=== PATIENT | female | born 1965 | race Caucasian/White ===

== ENCOUNTER 2017-08-18 21:28 | Emergency (ER) | payer OTHER ==
[~2017-08-18] VITALS: Ht 160 cm; Wt 69.0 kg
[~2017-08-18 21:28] MED LIST: AMBIEN; LORTABELXR PO; SYNTHROID75 MCG; THERA-M CAPLET1 EACH; ZPAK PO
[2017-08-18] MEDS ORDERED: LIPITOR 20 MG T20 M1 PO (21:33)
[2017-08-18] MEDS ORDERED: FLEXERIL PO (21:33)
[2017-08-18 21:52] LABS: ABSOLUTE BASOPHILS 0.1 thou/uL (0.0-0.2); ABSOLUTE EOSINOPHILS 0.2 thou/uL (0.0-0.7); ABSOLUTE LYMPHOCYTES 3.3 thou/uL (0.8-5.3); ABSOLUTE NEUTROPHILS 5.4 thou/uL (1.6-8.1); EOSINOPHILS 1.8 %; HEMOGLOBIN 14.9 gm/dL (12.0-15.0); LYMPHOCYTES 33.1 %; MCH 33.1 pg (26.0-34.0); MCHC 35.3 g/dL (28.0-37.0); MCV 93.8 fL (80.0-100.0); MPV 8.2 fl. (7.2-11.1); NUCLEATED RBCS 0 /100WBC; PLATELET COUNT* 244 thou/uL (150-400); POLYS 54.1 %; RBC 4.48 mil/uL (4.20-5.00); RDW-CV 12.3 % (10.5-14.5); WBC 9.9 thou/uL (4.0-11.0)
[2017-08-18 22:00] LABS: ANION GAP 9 mmol/L (7-16); BUN 15 mg/dL (7-18); CALCIUM 9.4 mg/dL (8.5-10.1); CHLORIDE 102 mmol/L (98-107); CO2 30 mmol/L (21-32); GLUCOSE 115 mg/dL (70-99); POTASSIUM 3.7 mmol/L (3.5-5.1); SODIUM 141 mmol/L (136-145)
[2017-08-18 22:17] LABS: ALBUMIN 4.2 g/dL (3.4-5.0); ALKALINE PHOSPHATASE 79 U/L (46-116); CK-MB MASS < 0.5 ng/mL (<0.5-3.6); LIPASE 286 U/L (73-393); MAGNESIUM 2.4 mg/dL (1.8-2.4); NT-PRO BRAIN NAT PEPTIDE 10 pg/mL (<300); SGOT 19 U/L (15-37); SGPT 38 U/L (30-65); TOTAL BILIRUBIN 0.7 mg/dL (<0.1-1.0); TOTAL PROTEIN 7.5 g/dL (6.4-8.2); TROPONIN-I LEVEL <0.06 ng/mL (<0.06)
[2017-08-18 22:22] LABS: APTT 24.3 Seconds (25.0-31.3)
[2017-08-18 22:50] VITALS: BP 124/73
--- NOTE | 2017-08-19 11:48 | EKG ---
[place] [address] ELECTROCARDIOGRAM REPORT Name: CRISTINE CEJA Room: [facility]#: [id number] Admission: 08/18/17 Attend Phys: Discharge: 08/18/17 Date of : 65 Report #: [id number] THIS REPORT FOR: //name// [facility] ED Test Date: 2017-08-18 Test Time: 21:32:58 Pat Name: CRISTINE CEJA Department: Room: Gender: F Nursing Support Worker: ED : 1965 Requested By: Aaron Beard Order Number: [id number] MD: Dov Ruvalcaba Measurements Intervals [place] Rate: 90 P: 43 [place]: 199 QRS: -52 QRSD: 97 T: 34 QT: 362 QTc: 443 Interpretive Statements Sinus rhythm Probable left atrial enlargement Left anterior fascicular block Possible anteroseptal infarct, old Compared to ECG 09/11/2010 22:22:15 Possible Myocardial infarct finding now present Electronically Signed On 08-19-2017 11:48:30 [employer] DEPARTMENT MANAGER by Dov Ruvalcaba [email or web address] <ELECTRONICALLY SIGNED> By: Dov Ruvalcaba MD, FACC 08/19/17 1148 [id number] Dov Ruvalcaba MD, MERGED WITH [facility] /EPI
[2017-09-19] MEDS ORDERED: IBUPROFEN 600600 M1 PO (09:06)
[2017-09-19] MEDS ORDERED: BIOTIN5000 MCG PO (09:07)
[2017-09-19] MEDS ORDERED: CALCIUM MAGNES1 EACH PO (09:09)
[2017-09-19] MEDS ORDERED: MOBIC15 MG PO (09:11)
[2017-09-19] MEDS ORDERED: COENZYME Q-1030 MG PO (09:20)
[2017-09-19] MEDS ORDERED: FISH OIL 1,001000 M2 PO (09:21)
[2017-09-19] MEDS ORDERED: THERA M PLUS T1 EAC2 PO (09:22)
[2017-09-19] MEDS ORDERED: RED YEAST RICE600 M1 PO (09:22)
[2017-10-24] MEDS ORDERED: AMITRIPTYLINE H10 M3 PO ×2 (08:21→08:22)
== END 2017-08-18 22:51 | disposition home or self-care (01) ==
LOC: M.ERS 21:28
PROVIDERS: Family Medicine
DX: M25.511 Pain in right shoulder (principal); Z88.5 Allergy status to narcotic agent

== ENCOUNTER → 2017-08-22 | Outpatient (CLI) | payer OTHER ==
[~2017-08-22] MED LIST changes: +AMITRIPTYLINE H10 M3 PO; +BIOTIN5000 MCG PO; +CALCIUM MAGNES1 EACH PO; +COENZYME Q-1030 MG PO; +FISH OIL 1,001000 M2 PO; +FLEXERIL PO; +IBUPROFEN 600600 M1 PO; +LIPITOR 20 MG T20 M1 PO; +MOBIC15 MG PO; +RED YEAST RICE600 M1 PO; +THERA M PLUS T1 EAC2 PO
== END ==
LOC: M.CT 07:46
DX: Z13.6 Encounter for screening for cardiovascular disorders (principal)

== ENCOUNTER → 2017-09-19 | Outpatient (CLI) | payer OTHER ==
--- NOTE | 2017-10-04 08:30 | PAINCON ---
[address] [address] PAIN MANAGEMENT CONSULTATION Name: CRISTINE CEJA Room: [facility] DARREL ThomasaRn#: [id number] Admission: 09/19/17 Attend Phys: Juvenal Martínez MD Discharge: Date of : 65 Report #: [id number] THIS REPORT FOR: //name// CC: Shahnaz Martínez DATE OF SERVICE: 09/19/2017 CHIEF COMPLAINT: Pain in the neck with pain down into the arm and hand. HISTORY OF PRESENT ILLNESS: The patient is a 52-year-old female who has been referred to the pain clinic for pain and discomfort, which is radiating down into her arms. She denies any trauma. She has not had surgery. Notes that her pain has been more problematic since about 11/2016. She has had a slow increase in pain and discomfort. She was given a Medrol Dosepak. She noted some improvement in her pain and discomfort. Does have some history of chronic neck pain with arthritis. Pain has been most problematic on the right arm. She has tried Flexeril and some nonsteroidal anti-inflammatory medications. She has noticed that sitting can exacerbate her pain. The Medrol Dosepak with prednisone decreased her pain and discomfort. She describes it as continuous, steady, constant, shooting, aching, sharp and tender. Rates it as a 6/10. It is having some impact on her life that she is having more difficulty sleeping and more difficulty with activities of daily living. ALLERGIES: HYDROCODONE CAUSE SOME CHEST TIGHTNESS. MEDICATIONS: Lipitor 20 mg 1 daily, biotin 500 mcg, calcium, magnesium, and vitamin D tablet, Flexeril 10 mg p.r.n. for spasms t.i.d., fish oil with food, ibuprofen 600 mg q. 4 hours, multivitamins, red yeast rice 600 mg, total of 1200 daily, Coenzyme Q 30 mg capsule. PAST MEDICAL HISTORY: 1. Right neck pain. 2. Hyperlipidemia. 3. Joint disease/arthritis. 4. Fibrocystic breast. 5. Hypothyroidism. 5. Menopause. PAST SURGICAL HISTORY: Breast lumpectomy in 05/2016. in 06/1993. FAMILY HISTORY: Hypertension in mother and father. Diabetes in father. Arthritis, migraines, and uterine cancer in maternal grandmother. Diabetes in grandfather. Mother is alive, has kidney problems. Father alive. Daughter alive. [place] [address] PAIN MANAGEMENT CONSULTATION Name: CRISTINE CEJA Room: [facility]#: [id number] Admission: 09/19/17 Attend Phys: Juvenal Martínez MD Discharge: Date of : 65 Report #: [id number] SOCIAL HISTORY: She is a food service cashier. She is working at this juncture. Denies use of tobacco. Denies use of alcoholic beverages. REVIEW OF SYSTEMS: Questionnaire in the chart indicates generally good health, wears glasses, joint pain, stiffness, back pain, breast lump, lightheadedness, and dizziness. LABORATORY DATA: 1. MRI of the cervical spine dated 08/15/2017 reveals C2/C3 normal disk height without a posterior disk bulge, protrusion or extrusion identified. No central canal stenosis, neural foraminal stenosis or nerve root compression is identified. 2. C3/C4 mild disk height loss without significant posterior disk bulge, protrusion or extrusion identified. Moderate left-sided facet arthropathy with the findings producing moderate left-sided neural foraminal stenosis with possible partial compression of the exiting left-sided nerve root as seen on axial T2 image. 3. No significant central stenosis or right-sided neural foraminal stenosis identified. 4. C5/C4 mild disk height loss with a small posterior disk osteophyte complex, which abuts the thecal sac anteriorly. There is more focal right foraminal component to the disk osteophyte complex as seen on T2 image. The findings produce moderate upper right-sided neural foraminal stenosis with the lower portion of the right neural foramen appearing widely patent. No nerve compression is identified. No significant central canal stenosis or left-sided neural foraminal stenosis identified. 5. C5/C6 mild disk height loss with a small posterior disk osteophyte complex, which produces minimal flattening of the thecal sac anteriorly. There is more focal left foraminal component to the disk osteophyte complex as seen on sagittal T2 images. 6. C6/C5 the findings appear to produce [id number] left-sided neural foraminal stenosis with possible partial compression of the exiting nerve root. Moderate right-sided neural foraminal stenosis is also present secondary to a small right foraminal disk osteophyte complex and mild right-sided facet arthropathy. The disk heights appear well-maintained from C6/C7 through T3/T4 without a significant posterior disk bulge, protrusion or extrusion identified at these levels. PAIN CLINIC ASSESSMENT: 1. No significant osteoarthritis noted, possible arthritis of the neck 2. Height 5 feet 4 inches, weight 154 pounds, BMI is 27. 3. VITAL SIGNS: Blood pressure 116/70, heart rate 87, respiratory rate 16, room air saturation 97%, temperature 98.6. 4. Pain intensity 6/10. 5. Fall risk. The patient has not fallen in the last 3 months. She is not a [address] [address] PAIN MANAGEMENT CONSULTATION Name: CRISTINE CEJA Jaden Room: [facility]#: [id number] Admission: 09/19/17 Attend Phys: Juvenal Martínez MD Discharge: Date of : 65 Report #: [id number] fall risk. 6. Blood thinners. The patient is not on any blood thinner. 7. History of hypertension. The patient is not being treated for hypertension. 8. Opioid therapy greater than 6 weeks. The patient is not on opioid therapy. 9. Risk tool assessment. 10. Functional assessment tool. 11. Recreational drug use. Denies use of recreational drugs. 12. Tobacco use. The patient denies use of tobacco, denies use of alcoholic beverages. PHYSICAL EXAMINATION: GENERAL: The patient is a well-developed, well-nourished white female, appears her stated age. She is alert and oriented x 3. Affect is appropriate. HEENT: Head is atraumatic. Extraocular eye muscles intact. Hearing is within normal limits. No nasal congestion. Buccal membranes moist. NECK: Without adenopathy or bruits. The patient has some soreness in the left and right occipital area, some soreness in the left and right trapezius to palpation. HEART: Regular rate with normal S1, S2. LUNGS: Clear to auscultation. ABDOMEN: Nontender. MUSCULOSKELETAL Alignment is normal without significant scoliosis, kyphosis or lordosis. The patient's gait appears normal. Lumbar extension to about 10 degrees and flexion to approximately 80 degrees were not problematic. Left and right lateral rotation, left and right lateral bending were not problematic. Muscle strength is judged to be 5/5 for the major muscle groups of the upper extremities. Biceps tendon reflexes are +2 left and right, triceps +1 left and right, brachial radialis +1 left and right. The patient does complain of some pain and discomfort radiating down the side of her hand into the right arm with numbness and tingling, major muscle groups in the lower extremities are judged to be +5/5, sensation of the lower extremities is within normal limits without deficits. Patellar reflex +2, ankle reflex +2. The patient is able to walk on her toes as well as her heels. IMPRESSION: 1. Right-sided arm pain with radiation of numbness and tingling down into the right arm. This improved after a Medrol Dosepak. 2. Hyperlipidemia. 3. Chest pressure. 4. Fibrocystic breast. 5. Hypothyroidism. 6. Menopause. RECOMMENDATIONS: We discussed treatment options with the patient. The patient is having pain and discomfort involving her right neck with stiffness, numbness radiating down into the right arm. She took a Medrol Dosepak[place] [address] PAIN MANAGEMENT CONSULTATION Name: MARCIALCRISTINE Jaden Room: [facility] LAURIE Farrar#: [id number] Admission: 09/19/17 Attend Phys: Juvenal Martínez MD Discharge: Date of : 65 Report #: [id number] the pain improved after that. We will have her try Mobic 15 mg 1 p.o. every day and note its efficacy. The patient will also return to the pain clinic at which time she will undergo a cervical epidural steroid injection to help with the pain and discomfort, which is radiating down into her right arm with numbness, weakness and sensory changes. She will follow up in the near future after her insurance company has precerted her. We would like to thank you for letting us participate in her care. We hope she continues to improve. <ELECTRONICALLY SIGNED> By: Juvenal Martínez MD 10/04/17 0830 1334 [id number]. Gerald Martínez MD /[facility]
== END ==
LOC: M.PC 08-29 08:20
DX: M54.2 Cervicalgia (principal); M79.602 Pain in left arm; M79.601 Pain in right arm; E78.5 Hyperlipidemia, unspecified; E03.9 Hypothyroidism, unspecified; R20.0 Anesthesia of skin; R20.2 Paresthesia of skin; N60.19 Diffuse cystic mastopathy of unspecified breast; R07.89 Other chest pain; Z78.0 Asymptomatic menopausal state

== ENCOUNTER → 2017-10-03 | Outpatient (CLI) | payer OTHER ==
--- NOTE | 2017-10-11 14:39 | PAINCON ---
[address] [address] PAIN MANAGEMENT CONSULTATION Name: CRISTINE CEJA Room: [facility] DARREL Charan#: [id number] Admission: 10/03/17 Attend Phys: Juvenal Martínez MD Discharge: Date of : 65 Report #: [id number] THIS REPORT FOR: //name// CC: Shahnaz Martínez DATE OF SERVICE: 10/03/2017 FOLLOWUP COMPLAINT: Here for a cervical injection. FOLLOWUP HISTORY: The patient is a 52-year-old female who has been seen in the pain clinic. As you recall, she has pain and discomfort involving the neck area. She was seen in the pain clinic at the last visit. She was found to be suffering from cervical radiculopathy. She has returned today. Her insurance company has precerted her for a cervical epidural steroid injection secondary to pain and discomfort in her right side with pain radiating with numbness and tingling down into her right arm. She feels that her pain continues to be problematic, rates it as a 7-8/10 today. She continues to experience some stiffness, numbness in the right arm and complains of worsening pain in the right shoulder. She continues to take her medications of meloxicam, Flexeril and ibuprofen. She would like to proceed with an epidural steroid injection today. ALLERGIES: HYDROCODONE CAUSES SOME CHEST TIGHTNESS. REVIEW OF CURRENT MEDICATIONS: Lipitor 20 mg 1 tablet daily, biotin 500 mcg, calcium, magnesium, vitamin D tablets, Flexeril 10 mg p.o. p.r.n. t.i.d. for spasms, fish oil, ibuprofen taken with food q. 4 hours p.r.n., multivitamins, red yeast rice 600 mg, 1200 mg daily, coenzyme Q capsules 30 mg. PAIN CLINIC ASSESSMENT: 1. The patient is not being treated for osteoarthritis or rheumatoid arthritis. 2. Height 5 feet 3-1/2 inches, weight 154 pounds, BMI is 26. 3. Vital Signs: 136/55, heart rate 82, respiratory rate 16, room air saturation 99%, temperature 98.4. 4. Pain intensity -02/06. 5. Fall risk. The patient has not fallen in the last 3 months. 6. The patient is not on a blood thinner 7. History of hypertension. The patient is not being treated for hypertension. 8. Opioid therapy greater than 6 weeks. The patient is not receiving opioid therapy on a regular basis. 9. Risk assessment tool: Pain impact score 30/70 in regards to general activity, mood, walking ability, work, relationship with other people, sleep, enjoyment of life, recreational drug use. The patient denies [place] [address] PAIN MANAGEMENT CONSULTATION Name: MORENOCRISTINE CRAIN Jaden Room: [facility]#: [id number] Admission: 10/03/17 Attend Phys: Juvenal Martínez MD Discharge: Date of : 65 Report #: [id number] 10. Tobacco use. The patient denies use of tobacco. 11. Alcoholic beverages. The patient denies any frequent use of alcoholic beverages. PHYSICAL EXAMINATION: GENERAL: The patient is a well-developed, well-nourished white female, appears her stated age. She is alert and oriented x 3. Affect is appropriate. HEENT: Atraumatic. Extraocular eye muscles intact. Hearing within normal limits. No nasal congestions or complaints. Buccal membranes moist. NECK: Without adenopathy or bruits. The patient has some soreness in her left and right occipital areas as well as some pain radiating down into her right trapezius. HEART: Heart rate is normal, S1, S2. LUNGS: Clear to auscultation. ABDOMEN: Nontender. MUSCULOSKELETAL: Upper muscle biceps are +2 on the left and right, triceps +1 on the right, brachioradialis +1 on the left and right. The patient continues to complain of pain and discomfort radiating down the side of her hand into the right arm with numbness and tingling. Major muscle groups in the lower extremity unaffected and 5/5. IMPRESSION: 1. Right-sided arm pain with radiation, numbness and tingling down into the right arm. 2. Hyperlipidemia. 3. Chest pressure. 4. Fibrocystic breast disease. 5. Hypothyroidism. 6. Menopause. RECOMMENDATIONS: We discussed the treatment option with the patient. We reviewed the possible complication of the procedure, which could include but are not limited to infection, increased muscle soreness, headache, bleeding, nerve damage, improvement, no improvement. The patient elects to proceed. PROCEDURE NOTE: The patient was placed in the prone position. Her neck was sterilely prepped with a Betadine solution. Fluoroscopy was used to identify the C7-T1 interspace. Anterior and lateral viewing was used. After the target site had been identified, 0.25% bupivacaine was then injected with a 25-gauge needle. A 17-gauge needle with loss of resistance technique was used to gain access to the epidural space. There was no CSF, heme or paresthesia. A total of 120 mg of triamcinolone was injected. The patient tolerated the procedure well. She remained in the examination area for an appropriate amount of time. A Band-Aid was placed in the site. There was no bleeding. She was then escorted to the recovery area where she remained for an appropriate amount of [facility] [address] [place] [address] PAIN MANAGEMENT CONSULTATION Name: CRISTINE CEJA Jaden Room: [facility]#: [id number] Admission: 10/03/17 Attend Phys: Juvenal Martínez MD Discharge: Date of : 65 Report #: [id number] time. She will follow up in the future as needed. We would like to thank you for letting us participate in her care. We hope she continues to improve. <ELECTRONICALLY SIGNED> By: Juvenal Martínez MD 10/11/17 1439 1027 1330N. Gerald Martínez MD /[facility]
== END | disposition home or self-care (01) ==
LOC: M.PC 01:48
DX: M54.12 Radiculopathy, cervical region (principal); G89.29 Other chronic pain; M25.511 Pain in right shoulder; E78.5 Hyperlipidemia, unspecified; E03.9 Hypothyroidism, unspecified; N60.19 Diffuse cystic mastopathy of unspecified breast; Z88.8 Allergy status to other drugs, medicaments and biological substances; Z79.899 Other long term (current) drug therapy; Z78.0 Asymptomatic menopausal state

== ENCOUNTER → 2017-10-24 | Outpatient (CLI) | payer OTHER ==
--- NOTE | 2017-11-01 08:21 | PAINCON ---
[address] [address] PAIN MANAGEMENT CONSULTATION Name: CRISTINE CEJA Room: [facility] LA[facility] Farrar#: [id number] Admission: 10/24/17 Attend Phys: Juvenal Martínez MD Discharge: Date of : 65 Report #: [id number] THIS REPORT FOR: //name// CC: Shahnaz Martínez DATE OF SERVICE: 10/24/2017 FOLLOWUP COMPLAINT: The pain improved, but now having some tightness at the base of the neck that is radiating upward as well as a return of some of the pain and discomfort down into the neck and arm area. FOLLOWUP HISTORY: The patient is a 52-year-old female, who has been seen in the pain clinic because of cervical radiculopathy. She underwent a cervical epidural steroid injection and gleaned benefit from that. She returns today indicating that her pain improved greater than 60% after the last injection. Still having some discomfort and involvement, which she still finds painful. It is down from 7-8/10-4/10, but the patient still is limited in some of her ability to engage in activities. She is still having some stiffness in the right arm and complains of some pain in the right shoulder. She finds that use of meloxicam, Flexeril, and ibuprofen continued to be helpful. She felt that the epidural steroid injection was helpful to about 50%-60% improvement, but would like to proceed with another cervical epidural steroid injection to help decrease her discomfort even more so. ALLERGIES: HYDROCODONE CAUSES SOME CHEST TIGHTNESS. MEDICATIONS: Review of current medications indicate use of Lipitor 20 mg 1 tablet daily, biotin 500 mcg, calcium, magnesium, vitamin D tablets, Flexeril 10 mg p.o. t.i.d. for spasms, fish oil, ibuprofen with food q.4 hours p.r.n., multivitamins, red yeast rice 600 mg daily to 1200 mg daily, and coenzyme Q capsules 30 mg pain. PAIN ASSESSMENT: 1. The patient is not being treated for osteoarthritis or rheumatoid arthritis. 2. Pain intensity: The patient rates it as a 4/10. 3. Fall risk: The patient has not fallen in the last 3 months. 4. The patient is not on a blood thinner. 5. The patient is not being treated for hypertension. 6. Opioid greater than 6 weeks. 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 7. Risk assessment tool: The patient scores 30/70 indicating some increased discomfort and influence in her life involving her activity, mood, walking ability, work, relationships with other people, sleep, and enjoyment of life. 8. Denies [place] [address] PAIN MANAGEMENT CONSULTATION Name: CRISTINE CEJA Jaden [id number] Admission: 10/24/17 Attend Phys: Juvenal Martínez MD Discharge: Date of : 65 Report #: [id number] 9. Denies use of tobacco. 10. Denies alcoholic beverages with any frequency: PHYSICAL EXAMINATION: GENERAL: The patient is a well-developed and well-nourished white female. Appears her stated age. She is alert and oriented x 3. Affect is appropriate. Height 5 feet 3-1/2 inches, weight 153 pounds, and BMI is 26. VITAL SIGNS: Blood pressure 108/60, pulse 90, respiratory rate 16, room air saturation 98%, and temperature 99.1. HEENT: Normocephalic and atraumatic. Extraocular eye muscles intact. Hearing within normal limits. Mucous membranes moist. No complaints of nasal congestion. NECK: Without adenopathy or bruits. The patient has some soreness in her left and right occipital area as well as some pain radiating down into her right trapezius. HEART: Heart rate is normal. Normal S1, S2. LUNGS: Clear to auscultation. ABDOMEN: Nontender without organomegaly. MUSCULOSKELETAL: Upper muscle biceps +2 in the left and right, triceps +1 on the right, and brachial radialis +1 on the left and right. The patient continues to complain of some pain and discomfort with radiation down the side of her hand into the right arm with numbness and tingling. Major muscle groups in the lower extremities are unaffected and rates them as a 5/5 muscle strength with normal sensation and symmetry. IMPRESSION: 1. Right-sided arm pain with radiation, numbness, and tingling down into the right arm, improved after the first injection by greater than 60%. 2. Hyperlipidemia. 3. Chest pressure. 4. Fibrocystic breast disease. 5 Hypothyroidism. 6. Menopause. RECOMMENDATIONS: We discussed treatment options with the patient. She will return to the pain clinic for second epidural steroid injection. She did glean good benefit from the first injection. She continues to have some sensory changes of numbness, tingling, and weakness involving the right arm. After her insurance company okays this, she will then return to the pain clinic at which time she will undergo another cervical epidural steroid injection. She will continue with her current medications of meloxicam. A script for Elavil 10 mg 1 p.o. at bedtime and increased to 20 mg at bedtime has been written. She will call us if she has any problems. [facility] [address] [place] [address] PAIN MANAGEMENT CONSULTATION Name: CRISTINE CEJA Room: [facility]#: [id number] Admission: 10/24/17 Attend Phys: Juvenal Martínez MD Discharge: Date of : 65 Report #: [id number] We would like to thank you for letting us to participate in her care. We hope she continues to improve and notes continued improvement. <ELECTRONICALLY SIGNED> By: Juvenal Martínez MD 11/01/17 0821 [id number]. Gerald Martínez MD /[facility]
== END ==
LOC: M.PC 01:45
DX: E78.5 Hyperlipidemia, unspecified (principal); N60.11 Diffuse cystic mastopathy of right breast; E03.9 Hypothyroidism, unspecified; M79.631 Pain in right forearm; R07.89 Other chest pain; Z78.0 Asymptomatic menopausal state

== ENCOUNTER → 2017-11-09 | Outpatient (CLI) | payer OTHER ==
--- NOTE | 2017-11-21 08:16 | PAINCON ---
[address] [address] PAIN MANAGEMENT CONSULTATION Name: CRISTINE CEJA Room: [facility] LAURIE Farrar#: [id number] Admission: 11/09/17 Attend Phys: Juvenal Martínez MD Discharge: Date of : 65 Report #: [id number] THIS REPORT FOR: //name// CC: Shahnaz Martínez DATE OF SERVICE: 11/09/2017 FOLLOWUP COMPLAINT: Here for another cervical epidural steroid injection. "I received greater than 50% improvement after the last injection, but I have noted some pain remaining." FOLLOWUP HISTORY: The patient is a very pleasant a 52-year-old female who has been seen in the Pain Clinic because of cervical radiculopathy. She has undergone a cervical epidural steroid injection and gleaned benefits from that greater than 50%-60% improvement. She notes that her pain continues to be somewhat problematic and feels that another injection would be warranted. She was seen at the Pain Clinic a week ago. Her insurance company has been petitioned. They have granted granted her the ability to proceed with a cervical epidural steroid injection at this juncture. She feels that she is able to engage in more activities of daily living with less pain and discomfort. Pain involves her right arm as well as in her right shoulder and that has improved. She feels that her medications are Meloxicam, Flexeril and ibuprofen continues to be helpful. No problems with the past procedure. No resultant weaknesses or worsening of pain. The patient would like to proceed with another injection today. She has no new concerns, but would like to proceed. ALLERGIES: HYDROCODONE CAUSES SOME CHEST TIGHTNESS. CURRENT MEDICATIONS: Include Lipitor 20 mg 1 tablet p.o. daily, biotin 500 mcg, calcium, magnesium, vitamin D tablet, Flexeril 10 mg 1 p.o. t.i.d. for spasms, fish oil, ibuprofen with food q. 4-6 hours p.r.n. multiple vitamin, red yeast rice 600 mg daily to 1200 mg daily and coenzyme Q capsules 30 mg. PAIN ASSESSMENT: 1. The patient is not being treated for osteoarthritis or rheumatoid arthritis. 2. Pain intensity. The patient rates her pain as an 8/10 with involvement of her shoulder and arm. 3. Fall risk. The patient has not fallen in the last 3 months. 4. Blood thinner. The patient is not on a blood thinner. 5. The patient is not being treated for hypertension. 6. Opioid greater than 6 weeks. The patient is not on opioids greater than 6 weeks. 7. Risk assessment tool. The patient's pain score is 30/70 indicating some increased problem with activities of daily living secondary to the pain, which [facility] [address] [place] [address] PAIN MANAGEMENT CONSULTATION Name: MORENOCRISTINE CRAIN Jaden Room: [facility] DARREL Charan#: [id number] Admission: 11/09/17 Attend Phys: Juvenal Martínez MD Discharge: Date of : 65 Report #: [id number] impacts mood, walking ability, work relationships with others, sleep and enjoyment of life. 8. Denies any use of recreational drugs. 9. Denies use of tobacco. 10. Denies alcoholic beverages with any frequency. PHYSICAL EXAMINATION: GENERAL: The patient is a well-developed, well-nourished white female. Appears her stated age. She is alert and oriented x 3. Her affect is appropriate. Height 5 feet 4 inches, weight 152 pounds, BMI is 22. VITAL SIGNS: Blood pressure 104/52, heart rate 91, respiratory rate 16, room air saturation 97%, temperature 98.2. HEENT: Normocephalic, atraumatic. Extraocular eye muscles intact. Hearing is within normal limits. Mucous membranes are moist. No complications or complaint of congestion. without evident neuropathy or bruits. The patient has some soreness in her left and right occipital areas. Has some pain radiating down into her right shoulder and the trapezius area. HEART: Rate is normal. Normal S1, S2. LUNGS: Clear to auscultation without rales or crackles. ABDOMEN: Nontender. MUSCULOSKELETAL: Upper extremities, biceps +2 in the left and right, triceps +1 on the right, and brachial radialis +1 on the left and right. The patient complains of some pain and discomfort with certain movements of her right arm with numbness and tingling down into her fingers. Major muscle groups of lower extremity is unaffected and 5/5 with normal symmetry without sensory changes. IMPRESSION: 1. Right arm pain with radiation, numbness and tingling down into the right arm, improved after the first injection, greater than 60%. 2. Hyperlipidemia. 3. Chest pain. 4. Fibrocystic breast disease. 5. Thyroid disease. 6. Menopause. RECOMMENDATIONS: We discussed treatment options with the patient. Risks and benefits of a cervical injection were again reviewed. They include but are not limited to infection, increased muscle soreness, headache, bleeding, worsening of pain, improvement in pain, nerve damage. The patient elects to proceed. PROCEDURE NOTE: The patient was assisted in the procedure room to the table. She was placed in the prone position. Her neck was sterilely prepped with a Betadine solution. Fluoroscopy was used to identify the appropriate trigger of the appropriate injection site. At C1/T1 a 0.25% bupivacaine was infiltrated. Fluoroscopy using anterior, posterior as well as lateral imaging was used to confirm appropriate placement. A total of 120 [place] [address] PAIN MANAGEMENT CONSULTATION Name: ANDREWMARIANACRISTINE CRAIN Jaden Room: [facility]#: [id number] Admission: 11/09/17 Attend Phys: Juvenal Martínez MD Discharge: Date of : 65 Report #: [id number] after the epidural space was found using a 17-gauge Tuohy. Total of 3 mL solutions were injected. The patient tolerated the procedure well. There were no complications. She has had no bleeding. A Band-Aid was placed. She was then taken to the recovery room where she remained for an appropriate amount of time. She will follow up in the future as needed. We would like to thank you for letting us participate in her care. We hope she continues. <ELECTRONICALLY SIGNED> By: Juvenal Martínez MD 11/21/17 0816 0918 2018Kasie. Gerald Martínez MD /[facility]
== END ==
LOC: M.PC 01:26
DX: M54.12 Radiculopathy, cervical region (principal); Z88.8 Allergy status to other drugs, medicaments and biological substances; Z79.899 Other long term (current) drug therapy; F11.20 Opioid dependence, uncomplicated; E78.5 Hyperlipidemia, unspecified; N60.19 Diffuse cystic mastopathy of unspecified breast; E07.9 Disorder of thyroid, unspecified

== ENCOUNTER → 2018-05-08 | Outpatient (CLI) | payer OTHER | LOC: M.RAD 16:03 | DX: M25.512 Pain in left shoulder (principal); R20.0 Anesthesia of skin; R20.2 Paresthesia of skin ==

== ENCOUNTER → 2018-07-03 | Outpatient (CLI) | payer OTHER | LOC: M.RAD 16:11 | DX: Z12.31 Encounter for screening mammogram for malignant neoplasm of breast (principal) ==

== ENCOUNTER → 2020-01-01 | Outpatient (CLI) | payer OTHER ==
[~2020-01-01] MED LIST changes: +LIORESAL 10 MG10 MG PO; +PERCOCET 7.5-31 EACH PO
== END ==
LOC: M.RAD 12:29
DX: Z12.31 Encounter for screening mammogram for malignant neoplasm of breast (principal)

== ENCOUNTER → 2020-07-21 | Outpatient (CLI) | payer OTHER | LOC: M.PUL 07-16 12:00 | PROVIDERS: ATTEND Family Medicine | DX: R53.82 Chronic fatigue, unspecified (principal); G47.33 Obstructive sleep apnea (adult) (pediatric); R06.83 Snoring ==

== ENCOUNTER → 2021-01-27 | Outpatient (CLI) | payer OTHER | LOC: M.RAD 16:00 | PROVIDERS: ATTEND Family Medicine | DX: Z12.31 Encounter for screening mammogram for malignant neoplasm of breast (principal); N64.89 Other specified disorders of breast ==